=== PATIENT | male | born 1990 | race African-American/Black ===

== ENCOUNTER 2017-04-17 21:39 | Emergency (ER) | payer OTHER ==
[~2017-04-17] VITALS: Ht 165.1 cm; Wt 59.2 kg
[~2017-04-17 21:39] MED LIST: MOTRIN600 MG PO; NAPROSYN500 MG PO; NO MED
[2017-04-17 23:24] LABS: HEMATOCRIT 38.1 % (38.0-50.0); MCH 32.2 PG (29.0-34.0); MCHC 34.9 G/DL (30.0-36.0); MCV 92.3 FL (86-99); PLATELET COUNT 310 K/uL (156-360); RBC DIS.WIDTH-CV 12.3 % (11.8-14.6); RBC DIS.WIDTH-SD 41.7 % (39-53); RED BLOOD COUNT 4.13 M/uL (4.00-5.50); WHITE BLOOD COUNT 7.4 K/uL (4.1-10.2)
[2017-04-17 23:35] LABS: CHLORIDE 105 mEq/L (99-109); SODIUM 140 mEq/L (136-147)
[2017-04-17 23:38] LABS: GLUCOSE 111 mg/dL (70-99)
[2017-04-17 23:39] LABS: ANION GAP 8 MEQ/L (2-14); TOTAL BILIRUBIN 0.8 mg/dL (0.0-1.0)
[2017-04-17 23:41] LABS: ALKALINE PHOSPHATASE 51 IU/L (3-129); GFR ESTIMATE (CALCULATED) > 59 mL/min/; SERUM ETHYL ALCOHOL < 10 mg/dL
[2017-04-17 23:42] LABS: UREA NITROGEN (BUN) 9 mg/dL (9-23)
[2017-04-17 23:45] LABS: LIPASE 18 U/L (1.0-51.0)
[2017-04-18 01:46] LABS: AMPHETAMINE PRESUMPTIVE POSITIVE (500 ng/mL); BARBITURATES NEGATIVE (200 ng/mL); BENZODIAZEPINES NEGATIVE (150 ng/mL); COCAINE NEGATIVE (150 ng/mL); INTERNAL CONTROLS VALID? YES; METHADONE NEGATIVE (200 ng/mL); METHAMPHETAMINE NEGATIVE (500 ng/mL); OPIATES (MORPHINE) NEGATIVE (100 ng/mL); OXYCODONE NEGATIVE (100 ng/mL); PHENCYCLIDINE PRESUMPTIVE POSITIVE (25 ng/mL); PROPOXYPHENE NEGATIVE (300 ng/mL); THC CANNABINOIDS NEGATIVE (50 ng/mL); TRICYCLIC ANTIDEPRESSANTS NEGATIVE (300 ng/mL)
[2017-04-18 01:47] LABS: ADD MEDTOX COMMENT Y
[2017-04-18 03:11] VITALS: BP 119/67
== END 2017-04-18 03:13 | disposition home or self-care (01) ==
LOC: EME 21:39
PROVIDERS: Emergency Medicine
DX: R51 Headache (principal); F15.10 Other stimulant abuse, uncomplicated; E86.0 Dehydration; F17.200 Nicotine dependence, unspecified, uncomplicated
CPT/HCPCS: 70450; 80053; 83690; 84999; 85027; 99281; 99285; G0480; J0780; J1200; J7030

== ENCOUNTER 2018-03-19 12:05 | Emergency (ER) | payer OTHER ==
[~2018-03-19] VITALS: Ht 167.6 cm; Wt 63.0 kg
[2018-03-19] MEDS ORDERED: ULTRAM50 MG PO (14:08)
[2018-03-19] MEDS ORDERED: NAPROSYN500 MG PO (14:08)
[2018-03-19 14:30] VITALS: BP 162/96
== END 2018-03-19 14:31 | disposition home or self-care (01) ==
LOC: EME 12:05
PROC: 2W3CX1Z Immobilization of Right Lower Arm using Splint (ICD-10-PCS; principal; 2018-03-19)
DX: S60.551D Superficial foreign body of right hand, subsequent encounter (principal); W25.XXXD Contact with sharp glass, subsequent encounter; W45.8XXD Other foreign body or object entering through skin, subsequent encounter; G56.01 Carpal tunnel syndrome, right upper limb
CPT/HCPCS: 73110; 73130; 99281; 99283